=== PATIENT | female | born 1955 | race Caucasian/White ===

== ENCOUNTER 2020-05-16 07:58 | Outpatient (CLI) | payer BC ==
[2020-05-16] MEDS ORDERED: Magnevist 469MG/ML 20 ML VIAL ONE (09:25)
--- NOTE | 2020-05-16 10:38 | MRI ---
MRI LUMBAR SPINE WITHOUT CONTRAST: INDICATION: Weakness. FINDINGS: The lumbar vertebrae maintain normal height. The vertebral body signal is normal. The disk spaces are preserved. There is a mild anterolisthesis at L4-5. No significant disk bulge is seen at T12-L1 or L1-2. There is mild facet arthrosis at these levels; however, no central canal or foraminal stenosis. L2-3: Mild disk bulge that flattens the anterior thecal sac. Moderate facet and ligamentous hypertr ophy. Mild central canal stenosis. L3-4: There is a prominent diffuse disk bulge compressing the thecal sac. There is moderate to issa re facet and ligamentous hypertrophy. These changes severely compress the thecal sac and result in s evere central canal stenosis. Bilateral foraminal stenosis is present due to the diffuse disk bulge and facet hypertrophy. L4-5: Mild anterolisthesis as noted above. Mild diffuse disk bulge. Prominent facet arthrosis and hypertrophy. Mild to moderate central canal stenosis. Mild foraminal narrowing. L5-S1: Signal in the posterior disk consistent with annular fissure. Mild disk bulge. Facet arthro sis. No significant central canal stenosis. Mild right foraminal encroachment from facet hypertroph y and disk bulge. IMPRESSION: 1. Severe central canal stenosis at L3-4 as described above. 2. Anterolisthesis at L4-5 with mild to moderate central canal stenosis as described above. POS: [facility]
--- NOTE | 2020-05-16 12:14 | MRI ---
BRAIN MRI WITH AND WITHOUT CONTRAST: Date: 05/16/2020 COMPARISON: 09/12/2009. HISTORY: Balance issues. Worsening symptoms. FINDINGS: No hemorrhage on the axial gradient echo sequence. No parenchymal mass, mass effect, or midline shift. Brain volume is age-appropriate. Cortical zamora-white matter differentiation is preserved. T2 and FLAIR white matter hyperintensities due to chronic small vessel ischemic changes. There is adequate aeration of the sinuses and mastoid air cells. No pathologic enhancement of the brain parenchyma. IMPRESSION: 1. No acute intracranial process. 2. Absence restricted diffusion. No acute infarct. 3. No pathologic enhancement of the brain parenchyma. 4. Redemonstration of chronic small vessel ischemic changes of the white matter. POS: [facility]
== END 2020-05-16 07:59 | disposition home or self-care (01) ==
LOC: BICMRI 07:58
PROVIDERS: ATTEND Psychiatry & Neurology Neurology
DX: R53.1 Weakness (principal); M48.061 Spinal stenosis, lumbar region without neurogenic claudication; M43.16 Spondylolisthesis, lumbar region; I67.82 Cerebral ischemia
CPT/HCPCS: 70553; 72148; 82565; A9579

== ENCOUNTER 2020-10-09 09:36 | Outpatient (CLI) | payer BC ==
[2020-10-09 10:54] LABS: Anion Gap 13 mmol/L (10-20); BUN (Urea Nitrogen) 13 mg/dL (9.8-20.1); Calc. Creatinine Clearance 0 mL/min (70-130); Carbon Dioxide 26 mmol/L (23-31); Chloride 107 mmol/L (98-107); Glucose 139 mg/dL (80-115); Potassium 3.5 mmol/L (3.5-5.1); Sodium 142 mmol/L (136-145)
[2020-10-09 11:49] LABS: Calcium 9.4 mg/dL (7.8-10.44)
[2020-10-09 20:40] LABS: SARS-CoV-2 PCR by NAA Not Detected (NotDetected)
== END 2020-10-09 09:37 | disposition home or self-care (01) ==
LOC: LABBT 09:36
PROVIDERS: ATTEND Neurological Surgery
DX: Z01.812 Encounter for preprocedural laboratory examination (principal); Z20.822 Contact with and (suspected) exposure to COVID-19
CPT/HCPCS: 80048; 87635; U0003; U0005

== ENCOUNTER 2020-10-12 05:39 | Day surgery (SDC) | payer BC ==
[2020-10-10 15:05] VITALS: BMI 33.6
[2020-10-12] MEDS ORDERED: EPINEPHrine 1 MG/ML AMP ONE (06:23)
[2020-10-12] MEDS ORDERED: Bupivacaine PF 0.5% 30 ML VIAL ONE (06:23)
[2020-10-12] MEDS ORDERED: Thrombin 5000 UNITS/5 ML VIAL ONE (06:23)
[2020-10-12] MEDS ORDERED: Fentanyl 100 MCG/2 ML VIAL ONE ×4 (06:25→09:42)
[2020-10-12] MEDS ORDERED: PHENYLEPHRINE-NS 100 MCG/ML 10 ML SYRINGE ONE ×2 (07:26)
[2020-10-12] MEDS ORDERED: Ketorolac Tromethamine 30 MG/ML VIAL ONE (07:26)
[2020-10-12] MEDS ORDERED: Dexamethasone 20 MG/5 ML VIAL ONE (07:26)
[2020-10-12] MEDS ORDERED: PROPOFOL 200 MG/20 ML VIAL ONE (07:26)
[2020-10-12] MEDS ORDERED: Glycopyrrolate 0.2 MG/ML 5 ML SYRINGE ONE (07:26)
[2020-10-12] MEDS ORDERED: Rocuronium Bromide 10 MG/ML (10ML VIAL) ONE (07:26)
[2020-10-12] MEDS ORDERED: Ondansetron PF 4 MG/2 ML Vial ONE (07:26)
[2020-10-12] MEDS ORDERED: ePHEDrine Sulfate 50 MG/10 ML VIAL ONE (07:26)
[2020-10-12] MEDS ORDERED: Lidocaine 1% PF 5 ML VIAL ONE (07:26)
[2020-10-12] MEDS ORDERED: SUGAMMADEX SODIUM 200 MG/2 ML VIAL ONE (08:22)
== END 2020-10-12 12:40 | disposition home or self-care (01) ==
LOC: SDC 05:39
PROVIDERS: ATTEND Neurological Surgery
PROC: 01NB0ZZ Release Lumbar Nerve, Open Approach (ICD-10-PCS; principal; 2020-10-12)
DX: M48.062 Spinal stenosis, lumbar region with neurogenic claudication (principal); I10 Essential (primary) hypertension; E03.9 Hypothyroidism, unspecified; Z79.899 Other long term (current) drug therapy
CPT/HCPCS: 76000; J0171; J0690; J1100; J1885; J2405; J2704; J3010; S0020

== ENCOUNTER 2022-02-20 13:56 | Outpatient (CLI) | payer MEDICARE, BC ==
[~2022-02-20 13:56] MED LIST: Magnevist 469MG/ML 20 ML VIAL ONE
== END 2022-02-20 13:57 | disposition home or self-care (01) ==
LOC: TBSIIMAG 13:56
PROVIDERS: ATTEND Neurological Surgery
DX: M47.26 Other spondylosis with radiculopathy, lumbar region (principal); M51.16 Intervertebral disc disorders with radiculopathy, lumbar region; M48.061 Spinal stenosis, lumbar region without neurogenic claudication; M43.16 Spondylolisthesis, lumbar region; Z98.890 Other specified postprocedural states
CPT/HCPCS: 72158; 82565

== ENCOUNTER 2022-03-13 07:55 | Outpatient (CLI) | payer MEDICARE, BC | END 2022-03-13 07:56 | disposition home or self-care (01) | LOC: BICCT 07:55 | PROVIDERS: ATTEND Neurological Surgery | DX: M47.26 Other spondylosis with radiculopathy, lumbar region (principal); M48.061 Spinal stenosis, lumbar region without neurogenic claudication; M48.07 Spinal stenosis, lumbosacral region | CPT/HCPCS: 72131 ==

== ENCOUNTER 2022-07-11 09:25 | Outpatient (CLI) | payer MEDICARE, BC ==
[2022-07-11 10:31] LABS: Hemoglobin 13.8 g/dL (12.0-15.5); Mean Corpuscular HGB CONC 33.1 g/dL (32.0-36.0); Mean Corpuscular Hemoglobin 29.4 pg (27.0-33.0); Mean Corpuscular Volume 88.9 fl (81.6-98.3); Mean Platelet Volume 9.7 fl (7.4-10.4); Platelet Count 214 10x3/uL (150-450); RBC Distribution Width 12.5 % (11.5-14.5); Red Blood Cell (RBC) Count 4.69 10x6/uL (3.90-5.03); White Blood Cell (WBC) Count 5.7 10x3/uL (3.5-10.5)
[2022-07-11 10:38] LABS: Anion Gap 12 mmol/L (10-20); BUN (Urea Nitrogen) 17 mg/dL (9.8-20.1); Calc. Creatinine Clearance 0 mL/min (70-130); Calcium 9.1 mg/dL (7.8-10.44); Carbon Dioxide 28 mmol/L (23-31); Chloride 107 mmol/L (98-107); Estimated GFR 55; Glucose 107 mg/dL (80-115); Potassium 3.9 mmol/L (3.5-5.1); Sodium 143 mmol/L (136-145)
== END 2022-07-11 09:26 | disposition home or self-care (01) ==
LOC: LABBT 09:25
PROVIDERS: ATTEND Neurological Surgery
DX: Z01.812 Encounter for preprocedural laboratory examination (principal); M54.16 Radiculopathy, lumbar region; M43.06 Spondylolysis, lumbar region
CPT/HCPCS: 80048; 85027

== ENCOUNTER 2022-07-16 07:25 | Day surgery (SDC) | payer MEDICARE, BC ==
[2022-07-14 11:24] VITALS: BMI 34.4
[2022-07-16] MEDS ORDERED: Bupivacaine HCl 0.5%/Epinephrine 1:200,000/PF 30 ml Vial ONE (08:45)
[2022-07-16] MEDS ORDERED: SUGAMMADEX SODIUM 200 MG/2 ML VIAL ONE (09:15)
[2022-07-16] MEDS ORDERED: fentaNYL PF 100 MCG/2 ML SYRINGE ONE (09:15)
[2022-07-16] MEDS ORDERED: Sodium Chloride 0.9% 100 ML ONE (09:22)
[2022-07-16] MEDS ORDERED: CEFAZOLIN 2 GM VIAL ONE (09:22)
[2022-07-16] MEDS ORDERED: PROPOFOL 200 MG/20 ML VIAL ONE (09:51)
[2022-07-16] MEDS ORDERED: Dexamethasone 20 MG/5 ML VIAL ONE (09:51)
[2022-07-16] MEDS ORDERED: Lidocaine 1% PF 5 ML VIAL ONE (09:51)
[2022-07-16] MEDS ORDERED: Ondansetron PF 4 MG/2 ML Vial ONE ×2 (09:51)
[2022-07-16] MEDS ORDERED: Ketorolac Tromethamine 30 MG/ML VIAL ONE (09:51)
[2022-07-16] MEDS ORDERED: Rocuronium Bromide 10 MG/ML (10ML VIAL) ONE (09:51)
[2022-07-16] MEDS ORDERED: HYDROmorphone 2 MG/ML VIAL ONE (12:54)
[2022-07-16] MEDS ORDERED: Thrombin 5000 UNITS/5 ML VIAL ONE (13:17)
[2022-07-16] MEDS ORDERED: HYDROcodone/Acetaminophen 5/325 mg Tablet ONE ×2 (15:06→15:07)
== END 2022-07-16 16:15 | disposition home or self-care (01) ==
LOC: SDC 07:25
PROVIDERS: ATTEND Neurological Surgery
PROC: 0SG1071 Fusion of 2 or more Lumbar Vertebral Joints with Autologous Tissue Substitute, Posterior Approach, Posterior Column, Open Approach (ICD-10-PCS; principal; 2022-07-16)
DX: M51.16 Intervertebral disc disorders with radiculopathy, lumbar region (principal); M48.062 Spinal stenosis, lumbar region with neurogenic claudication; M43.16 Spondylolisthesis, lumbar region; E03.9 Hypothyroidism, unspecified; I10 Essential (primary) hypertension; Z79.890 Hormone replacement therapy; Z79.899 Other long term (current) drug therapy; Z98.890 Other specified postprocedural states
CPT/HCPCS: 20930; 20936; 22612; 22614; 22842; C1713 ×2; C1768; C1776; J1100; J1170; J1885; J2405; J2704; J3490

== ENCOUNTER 2023-01-16 09:42 | Outpatient (CLI) | payer MEDICARE, BC | END 2023-01-16 09:43 | disposition home or self-care (01) | LOC: BICMRI 09:42 | PROVIDERS: ATTEND Specialist | DX: M51.16 Intervertebral disc disorders with radiculopathy, lumbar region (principal); M47.816 Spondylosis without myelopathy or radiculopathy, lumbar region; M48.061 Spinal stenosis, lumbar region without neurogenic claudication; Z98.890 Other specified postprocedural states | CPT/HCPCS: 72148 ==

== ENCOUNTER 2023-04-17 08:32 | Observation (INO) | payer MEDICARE, BC ==
[2023-04-17 09:23] LABS: #Eosinphils 0.1 thou/uL (0.0-0.7); #Monocytes 0.7 thou/uL (0.11-0.59); #Neutrophils 5.3 thou/uL (1.40-6.50); %Basophils 0.4 % (0.0-1.0); %Eosinophils 1.9 % (0.0-10.0); %Lymphocytes 11.7 % (21.0-51.0); %Monocytes 9.7 % (0.0-10.0); Hematocrit 42.4 % (36.0-47.0); Hemoglobin 14.1 g/dL (12.0-16.0); Mean Corpuscular HGB CONC 33.3 g/dL (32.0-36.0); Mean Corpuscular Hemoglobin 29.6 pg (27.0-31.0); Mean Corpuscular Volume 88.9 fl (78.0-98.0); Mean Platelet Volume 10.1 fL (7.4-10.4); Platelet Count 228 10x3/uL (130-400); RBC Distribution Width 12.4 % (11.5-14.5); Red Blood Cell (RBC) Count 4.77 mill/uL (4.20-5.40); White Blood Cell (WBC) Count 6.9 10x3/uL (4.8-10.8)
[2023-04-17 09:50] LABS: ALT (SGPT) 14 U/L (8-55); AST (SGOT) 19 U/L (5-34); Albumin 4.2 g/dL (3.4-4.8); Alkaline Phosphatase 67 U/L (40-110); Anion Gap 13 mmol/L (10-20); BUN (Urea Nitrogen) 15 mg/dL (9.8-20.1); Bilirubin, Total 1.1 mg/dL (0.2-1.2); Calc. Creatinine Clearance 0 mL/min (70-130); Calcium 9.8 mg/dL (7.8-10.44); Carbon Dioxide 28 mmol/L (23-31); Chloride 104 mmol/L (98-107); Estimated GFR 58; Globulin 3.5 g/dL (2.4-3.5); Glucose 108 mg/dL (80-115); Magnesium 2.1 mg/dL (1.6-2.6); Potassium 3.7 mmol/L (3.5-5.1); Protein, Total 7.7 g/dL (5.8-8.1); Sodium 141 mmol/L (136-145)
[2023-04-17 11:32] LABS: Bilirubin Negative (Negative); Blood, Urine Negative (Negative); CAUTI Indications for Culture Dysuria,urgency,freq; Clarity Clear (Clear); Glucose, Urine (Dipstick) Normal (Negative); Ketone, Urine Negative (Negative); Leukocyte Negative Leu/uL (Negative); Nitrite Negative (Negative); Protein, Urine (Dipstick) Negative (Neg-Trace); RBC/HPF 0-3 HPF (0-3); Specific Gravity, Urine 1.013 (1.002-1.036); Squamous Epithelial 0-3 HPF (0-3); Urobilinogen Normal mg/dL (Less than 2); WBC/HPF 0-3 HPF (0-3)
[2023-04-17 12:09] LABS: Bacteria/HPF 1+ HPF (None Seen)
[2023-04-17 12:10] LABS: Urine Culture Reflex No No
[2023-04-17] MEDS ORDERED: Ondansetron PF 4 MG/2 ML Vial IVP PRN (15:43)
[2023-04-17] MEDS ORDERED: Acetaminophen 325 MG TAB PO PRN (15:43)
[2023-04-17] MEDS ORDERED: Ondansetron ODT 4 MG TAB PO PRN (15:43)
[2023-04-17] MEDS ORDERED: Acetaminophen 650 MG Suppository PR PRN (15:43)
[2023-04-17 19:21] VITALS: BMI 32.9
[2023-04-18 05:02] LABS: #Eosinphils 0.2 thou/uL (0.0-0.7); #Monocytes 0.8 thou/uL (0.11-0.59); #Neutrophils 5.1 thou/uL (1.40-6.50); %Basophils 0.3 % (0.0-1.0); %Eosinophils 2.6 % (0.0-10.0); %Lymphocytes 14.7 % (21.0-51.0); %Monocytes 11.5 % (0.0-10.0); %Neutrophils 70.6 % (42.0-75.0); Hematocrit 38.9 % (36.0-47.0); Hemoglobin 12.8 g/dL (12.0-16.0); Mean Corpuscular HGB CONC 32.9 g/dL (32.0-36.0); Mean Corpuscular Hemoglobin 29.6 pg (27.0-31.0); Mean Corpuscular Volume 89.8 fl (78.0-98.0); Mean Platelet Volume 10.5 fL (7.4-10.4); Platelet Count 234 10x3/uL (130-400); RBC Distribution Width 12.5 % (11.5-14.5); Red Blood Cell (RBC) Count 4.33 mill/uL (4.20-5.40); White Blood Cell (WBC) Count 7.2 10x3/uL (4.8-10.8)
[2023-04-18 05:18] LABS: Anion Gap 15 mmol/L (10-20); BUN (Urea Nitrogen) 16 mg/dL (9.8-20.1); Calc. Creatinine Clearance 72 mL/min (70-130); Calcium 9.2 mg/dL (7.8-10.44); Carbon Dioxide 26 mmol/L (23-31); Chloride 106 mmol/L (98-107); Estimated GFR 53; Glucose 107 mg/dL (80-115); Potassium 3.8 mmol/L (3.5-5.1); Sodium 143 mmol/L (136-145)
[2023-04-18] MEDS ORDERED: Levothyroxine Sodium 75 MCG TAB PO SCH (06:00)
[2023-04-18] MEDS ORDERED: FLUoxetine HCl 20 MG CAP PO SCH (09:00)
[2023-04-18] MEDS ORDERED: Hydrochlorothiazide 25 MG TAB PO SCH (09:00)
[2023-04-18] MEDS ORDERED: FLU VACC QS2023(65UP)/MF59C/PF 60 MCG/0.5 ML SYRINGE IM ONE (09:00)
[2023-04-18 12:08] VITALS: TEMP 98.3
[2023-04-18 14:39] VITALS: BP 131/66
== END 2023-04-18 15:30 | disposition home or self-care (01) ==
LOC: ERS 08:32 → ERHOLD 13:53 → 2SE 17:41
PROVIDERS: ADMIT Internal Medicine; ATTEND Family Medicine
DX: G91.2 (Idiopathic) normal pressure hydrocephalus (principal); R29.6 Repeated falls; R32 Unspecified urinary incontinence; I10 Essential (primary) hypertension; E03.9 Hypothyroidism, unspecified; M48.062 Spinal stenosis, lumbar region with neurogenic claudication; Z79.890 Hormone replacement therapy; Z79.899 Other long term (current) drug therapy
CPT/HCPCS: 36415; 80048; 80053; 81001; 83735; 85025; 99284; G0378

== ENCOUNTER → 2023-04-28 | Day surgery (SDC) | payer MEDICARE, BC | LOC: RAD 08:41 | PROVIDERS: ATTEND Neurological Surgery | PROC: 009U3ZX Drainage of Spinal Canal, Percutaneous Approach, Diagnostic (ICD-10-PCS; principal; 2023-04-28) | DX: R27.0 Ataxia, unspecified (principal); G91.2 (Idiopathic) normal pressure hydrocephalus | CPT/HCPCS: 62270 ==

== ENCOUNTER 2023-05-07 05:55 | Inpatient (IN) | payer MEDICARE, BC ==
[2023-05-07] MEDS ORDERED: EPINEPHrine 1 MG/ML VIAL ONE (06:13)
[2023-05-07] MEDS ORDERED: Lidocaine 1% (PF) 30 ML VIAL ONE (06:13)
[2023-05-07] MEDS ORDERED: Vancomycin 1 GM VIAL ONE (06:13)
[2023-05-07] MEDS ORDERED: Lidocaine 1% PF 5 ML VIAL ONE ×2 (06:37→07:17)
[2023-05-07] MEDS ORDERED: Rocuronium Bromide 10 MG/ML (10ML VIAL) ONE ×2 (06:37→07:17)
[2023-05-07] MEDS ORDERED: PROPOFOL 20 ML ONE (06:38)
[2023-05-07] MEDS ORDERED: CEFAZOLIN 2 GM VIAL ONE (06:51)
[2023-05-07] MEDS ORDERED: Sodium Chloride 0.9% 100 ML ONE (06:51)
[2023-05-07] MEDS ORDERED: Famotidine/PF 20 mg/2ml Vial ONE (06:53)
[2023-05-07] MEDS ORDERED: fentaNYL PF 100 MCG/2 ML SYRINGE ONE ×2 (07:16→08:01)
[2023-05-07] MEDS ORDERED: Ondansetron PF 4 MG/2 ML Vial ONE ×2 (07:17→07:51)
[2023-05-07] MEDS ORDERED: Dexamethasone 20 MG/5 ML VIAL ONE ×2 (07:17→07:51)
[2023-05-07] MEDS ORDERED: PROPOFOL 200 MG/20 ML VIAL ONE (07:17)
[2023-05-07] MEDS ORDERED: HYDROmorphone 2 MG/ML VIAL SLOW IVP PRN (08:11)
[2023-05-07] MEDS ORDERED: Promethazine HCl 25 MG/ML VIAL IM PRN (08:11)
[2023-05-07] MEDS ORDERED: Morphine Sulfate 2 MG/ML SYRINGE SLOW IVP PRN (08:11)
[2023-05-07] MEDS ORDERED: Ondansetron HCl/PF 4 MG/2 ML Vial IVP PRN (08:11)
[2023-05-07] MEDS ORDERED: PACU-Morphine 4MG/ML VIAL SLOW IVP PRN (08:11)
[2023-05-07] MEDS ORDERED: Bacitracin Zinc Ointment 30 gm TUBE ONE (08:14)
[2023-05-07] MEDS ORDERED: SUGAMMADEX SODIUM 200 MG/2 ML VIAL ONE (08:31)
[2023-05-07] MEDS ORDERED: Mag-Al 1200 mg/1200 mg/30 ML UDCUP PO PRN (08:35)
[2023-05-07] MEDS ORDERED: diphenhydrAMINE 50 MG/ML VIAL IVP PRN (08:35)
[2023-05-07] MEDS ORDERED: Labetalol HCl 100 MG/20 ML VIAL SLOW IVP PRN (08:35)
[2023-05-07] MEDS ORDERED: fentaNYL 50 mcg/mL 1 mL Vial ONE ×2 (09:35→09:53)
[2023-05-07] MEDS: Sodium Chloride 0.9% 1,000 ML IV SCH ×2 (12:00→22:53)
[2023-05-07] MEDS: Acetaminophen/Codeine 30-300mg Tablet PO PRN ×2 (12:37→20:37)
[2023-05-07] MEDS: Morphine 2 MG/ML VIAL SLOW IVP PRN (13:54)
[2023-05-07] MEDS: CEFAZOLIN 2 GM in Sodium Chloride 0.9% 100 ML IVPB SCH ×2 (15:41→22:40)
[2023-05-07 17:01] VITALS: BMI 32.9
[2023-05-08] MEDS: Ondansetron PF 4 MG/2 ML Vial IVP PRN ×2 (05:27→18:34)
[2023-05-08] MEDS: Levothyroxine Sodium 75 MCG TAB PO SCH (05:30)
[2023-05-08] MEDS: Morphine 2 MG/ML VIAL SLOW IVP PRN ×2 (09:35→18:34)
[2023-05-08] MEDS: FLUoxetine HCl 20 MG CAP PO SCH (11:54)
[2023-05-08] MEDS: Acetaminophen/Codeine 30-300mg Tablet PO PRN (11:54)
[2023-05-08] MEDS: Sodium Chloride 0.9% 1,000 ML IV SCH ×2 (11:55→23:25)
[2023-05-08] MEDS ORDERED: Metoclopramide HCl 10 MG/2 ML VIAL IVP SCH (15:45)
[2023-05-08 16:51] LABS: #Eosinphils 0.1 thou/uL (0.0-0.7); #Monocytes 0.8 thou/uL (0.11-0.59); #Neutrophils 7.7 thou/uL (1.40-6.50); %Basophils 0.1 % (0.0-1.0); %Eosinophils 0.5 % (0.0-10.0); %Lymphocytes 9.7 % (21.0-51.0); %Monocytes 8.1 % (0.0-10.0); %Neutrophils 81.3 % (42.0-75.0); Hematocrit 36.9 % (36.0-47.0); Hemoglobin 12.2 g/dL (12.0-16.0); Mean Corpuscular HGB CONC 33.1 g/dL (32.0-36.0); Mean Corpuscular Hemoglobin 29.7 pg (27.0-31.0); Mean Corpuscular Volume 89.8 fl (78.0-98.0); Mean Platelet Volume 9.9 fL (7.4-10.4); Platelet Count 205 10x3/uL (130-400); RBC Distribution Width 12.3 % (11.5-14.5); Red Blood Cell (RBC) Count 4.11 mill/uL (4.20-5.40); White Blood Cell (WBC) Count 9.4 10x3/uL (4.8-10.8)
[2023-05-08 17:12] LABS: Anion Gap 14 mmol/L (10-20); BUN (Urea Nitrogen) 9 mg/dL (9.8-20.1); Calc. Creatinine Clearance 97 mL/min (70-130); Calcium 8.6 mg/dL (7.8-10.44); Carbon Dioxide 26 mmol/L (23-31); Chloride 104 mmol/L (98-107); Estimated GFR 77; Glucose 143 mg/dL (80-115); Potassium 3.3 mmol/L (3.5-5.1); Sodium 141 mmol/L (136-145)
[2023-05-09] MEDS: Ondansetron PF 4 MG/2 ML Vial IVP PRN ×4 (02:42→23:27)
[2023-05-09] MEDS: Acetaminophen/Codeine 30-300mg Tablet PO PRN ×2 (02:51→08:40)
[2023-05-09] MEDS: Levothyroxine Sodium 75 MCG TAB PO SCH (05:47)
[2023-05-09] MEDS: Sodium Chloride 0.9% 1,000 ML IV SCH ×2 (05:53→17:36)
[2023-05-09] MEDS: hydrALAZINE 20 MG/ML VIAL SLOW IVP PRN ×4 (07:46→23:26)
[2023-05-09] MEDS: FLUoxetine HCl 20 MG CAP PO SCH ×2 (08:42→12:06)
[2023-05-09] MEDS ORDERED: Scopolamine 1 mg/72 hour Patch TD SCH (10:00)
[2023-05-09] MEDS: Promethazine 25 MG TAB PO PRN ×2 (12:06→20:01)
[2023-05-09] MEDS: HYDROcodone/Acetaminophen 10/325 mg Tablet PO PRN (12:09)
[2023-05-10] MEDS: hydrALAZINE 20 MG/ML VIAL SLOW IVP PRN ×2 (00:06→03:54)
[2023-05-10] MEDS: Promethazine 25 MG TAB PO PRN ×2 (03:54→11:17)
[2023-05-10] MEDS: Sodium Chloride 0.9% 1,000 ML IV SCH (03:59)
[2023-05-10] MEDS: Ondansetron PF 4 MG/2 ML Vial IVP PRN (05:53)
[2023-05-10] MEDS: Levothyroxine Sodium 75 MCG TAB PO SCH (05:54)
[2023-05-10] MEDS: HYDROcodone/Acetaminophen 10/325 mg Tablet PO PRN (05:54)
[2023-05-10] MEDS: FLUoxetine HCl 20 MG CAP PO SCH (08:33)
[2023-05-10 11:55] VITALS: BP 134/84; TEMP 98.2
== END 2023-05-10 15:09 | disposition home or self-care (01) | DRG 33 ==
LOC: SURG A 05:55 → SJJU 11:41
PROVIDERS: ADMIT Neurological Surgery; ATTEND Neurological Surgery
PROC: 00160J6 Bypass Cerebral Ventricle to Peritoneal Cavity with Synthetic Substitute, Open Approach (ICD-10-PCS; principal; 2023-05-07)
DX: G91.2 (Idiopathic) normal pressure hydrocephalus (principal); Z79.899 Other long term (current) drug therapy
CPT/HCPCS: 80048; 85025; C1776; J0171; J0360; J1100; J2001; J2272; J2405; J2704; J2765; J3010; J3370; J3490; J7050; Q0169; S0028